=== PATIENT | male | born 1960 | race Caucasian/White ===

== ENCOUNTER → 2018-10-09 | Outpatient (CLI) | payer OTHER | LOC: M.MRI 08:14 | DX: S43.491A Other sprain of right shoulder joint, initial encounter (principal); M19.011 Primary osteoarthritis, right shoulder; M25.711 Osteophyte, right shoulder; X58.XXXA Exposure to other specified factors, initial encounter; Y93.89 Activity, other specified; Y92.89 Other specified places as the place of occurrence of the external cause; Y99.8 Other external cause status ==

== ENCOUNTER → 2020-06-24 | Outpatient (CLI) | payer OTHER | LOC: M.RAD 10:00 | PROVIDERS: ATTEND Internal Medicine | DX: J12.89 Other viral pneumonia (principal); R05 Cough ==

== ENCOUNTER 2020-11-09 18:20 | Emergency (ER) | payer OTHER ==
[~2020-11-09] VITALS: Ht 172.7 cm; Wt 77.1 kg
[2020-11-09] MEDS ORDERED: CEPHALEXIN500 MG PO (19:35)
[2020-11-09] MEDS ORDERED: NORCO5 PO (19:35)
[2020-11-09] MEDS ORDERED: PROAIR HFA8.5 GM INH (20:47)
[2020-11-09 21:11] VITALS: BP 128/82
== END 2020-11-09 21:12 | disposition home or self-care (01) ==
LOC: M.ERS 18:20
DX: S62.631B Displaced fracture of distal phalanx of left index finger, initial encounter for open fracture (principal); S61.213A Laceration without foreign body of left middle finger without damage to nail, initial encounter; W27.8XXA Contact with other nonpowered hand tool, initial encounter; Y93.89 Activity, other specified; Y92.89 Other specified places as the place of occurrence of the external cause; Y99.8 Other external cause status